=== PATIENT | female | born 1985 | race Caucasian/White ===

== ENCOUNTER 2019-08-31 17:22 | Emergency (ER) | payer OTHER, MEDICAID ==
[~2019-08-31] VITALS: Ht 154.9 cm; Wt 56.0 kg
[2019-08-31 17:27] VITALS: BP 135/81
== END 2019-08-31 19:07 | disposition home or self-care (01) ==
LOC: ER 17:26
DX: M25.511 Pain in right shoulder (principal); M25.571 Pain in right ankle and joints of right foot; V89.2XXA Person injured in unspecified motor-vehicle accident, traffic, initial encounter; Y93.89 Activity, other specified; Y92.89 Other specified places as the place of occurrence of the external cause; Y99.8 Other external cause status
CPT/HCPCS: 73030; 99283